=== PATIENT | male | born 1960 | race Two or more races ===

== ENCOUNTER 2024-10-05 11:49 | Emergency (ER) | payer MEDICAID, SELFPAY ==
[2024-10-05 11:51] VITALS: BMI 26.6
[2024-10-05 12:53] VITALS: BP 142/82; PULSE 88; RESP 18; TEMP 36.9; O2SAT 99
--- NOTE | 2024-10-05 14:38 | EDNOTE_ITS ---
ED Skin Abcess FB-RME/HPI General Chief complaint: Skin/Abscess/Foreign Body Stated complaint: POSS BUG BITE LEFT HAND YESTERDAY Time Seen by Provider: 10/05/24 12:59 Source: patient Arrival date/time: 10/05/24 11:49 Mode of arrival: ambulatory Limitations: no limitations RME / HPI RME / HPI narrative: Patient is a 63-year-old male with no significant past medical history to the emergency department with concerns for bilateral lower extremity pain after having been bit by a bug yesterday. Patient noticed a lesion on his left upper extremity as mild erythema in the middle, playing around and then a [place], since then has had pain in both of his legs, and weakness in his extremities. Patient has a history of arthritis. Patient does also have a history of chronic lower extremity edema, takes furosemide at home. Also has a history of hypertension, takes lisinopril. Denies fevers chills nausea vomiting chest pain abdominal pain dysuria hematuria melena bloody stool drugs alcohol smoking recent travel to contact. Related Data Home Medications ?Medication ?Instructions ?Recorded ?Confirmed gemfibrozil 600 mg tablet 600 mg PO HS ##30 09/19/14 Previous Rx's ?Medication ?Instructions ?Recorded doxycycline hyclate 100 mg capsule 100 mg PO BID #20 c aps 10/05/24 Allergies Allergy/AdvReac Type Severity Reaction Status Date / Time No Known Allergies Allergy Verified 10/05/24 11:56 ED Exam General Limitations: Present no limitations General appearance: Present alert Head Head exam: Present atraumatic Eye Eye exam: Present normal appearance ENT ENT exam: Present normal exam Neck Neck exam: Present normal inspection; Absent tenderness or meningismus Chest Chest inspection: Present normal inspection Respiratory Respiratory exam: Present normal lung sounds bilaterally; Absent respiratory distress Cardiovascular Cardiovascular exam: Present regular rate and normal rhythm Abdominal Exam Abdominal exam: Present soft; Absent distention or tenderness Extremities Exam Extremities exam: Present normal inspection, full ROM and normal capillary refill; Absent tenderness Neurological Exam Neurological exam: Present alert, oriented X3, CN II-XII intact and normal gait Psychiatric Psychiatric exam: Present normal affect Skin Skin exam: Present warm, dry and rash (Patient with 3 cm lesion to his left forearm, with punctate area of erythema, surrounded central clearing, then surrounding that a [place] of mild erythema, no fluctuance or crepitus,) Course Quality Measures none Orders Category Date Time Status Lyme Ab w Reflex IgG,IgM Blot* Stat Lab 10/05/24 Ordered Doxycycline [Vibramycin] Med 10/05/24 13:29 Discontinued 100 mg PO X1 ONE Ketorolac Inj [Toradol Inj] Med 10/05/24 14:38 Once 15 mg IM X1 ONE Vital Signs Vital signs: Vital Signs Temperature 98.5 F 10/05/24 12:53 Pulse Rate 88 10/05/24 12:53 Respiratory Rate 18 10/05/24 12:53 Blood Pressure 142/82 H 10/05/24 12:53 Pulse Oximetry (%) 99 10/05/24 12:53 Oxygen Delivery Method Room Air 10/05/24 12:53 Skin / Abscess / Foreign Body MDM Narrative MDM Narrative:: Patient is a 61-year-old male is in the emerged part with concerns for diffuse lower extremity pain, mild prostatic pain after having been bit by an insect yesterday. Vital signs and exam as above. Concern for Lyme disease, reactive arthritis. Patient nonseptic nontoxic-appearing, no fluctuance or crepitus appreciated on lesion on left upper extremity, lower extremities have chronic lower extremity edema however skin is intact, 2+ DP pulses, 2+ radial pulses bilateral symmetric intact all 4 extremities, no signs of cellulitis, or deep space infection. No signs of trauma. Will proceed with treatment for Lyme disease given the lesion characteristics She is appreciated on left upper extremity and arthralgias. Will provide pat ient with a course of antibiotics, discharged home with close return precautions and follow-up with his primary care doctor. Patient data External records reviewed:: None Clinical information provided by:: patient Social determinants that could affect healthcare access:: other (specify) Patient has the following chronic illnesses:: See MDM How is presenting disease/condition affected by chronic disease/condition?: exacerbated by Evaluation data The following diagnostics were reviewed and interpreted by me:: other (specify) Lab and/or radiology exams considered but not ordered:: None Interpretation Summary: None Medications / Prescriptions Medications or Prescriptions considered but not ordered:: None Medication administrations:: Medication Administration History Ketorolac Tromethamine (Ketorolac Inj 60 Mg/2 Ml Vial) 15 mg IM X1 ONE Stop: 10/05/24 14:39 Discontinued Medications Doxycycline Hyclate (Doxycycline 100 Mg Tablet) 100 mg PO X1 ONE Stop: 10/05/24 13:30 See above Consultations Consultation(s) initiated? (list below): No Diagnosis Skin/Abscess Differential Diagnosis: abscess of skin or subcutaneous tissue, viral exanthem, contact dermatitis and other Most likely diagnosis given after review of the tests above:: Lyme associated arthralgias Admission Indicated Admission indicated?: not indicated Admission Request Was there a request for admission?: No Disposition Plan Disposition Plan: Discharge Discharge Attestation Discharge Attestation: The patient and all family members were given an opportunity to ask questions and understood the discharge instructions. Discharge instructions specifically effects, indications for sooner follow up or return to the emergency department, and the expected course of current diagnosis. Patient condition: Stable Discharge Plan Plan Patient Disposition: HOME (Self Care) Prescriptions/Referrals Prescriptions/Med Rec: New doxycycline hyclate 100 mg capsule 100 mg PO BID Qty: 20 0RF No Action gemfibrozil 600 MG tablet 600 mg PO HS Qty: 30 Problem List Clinical Impression: Cellulitis Patient/Caregiver Discharge Instructions Education Materials: ED Cellulitis Additional Instructions: Por favor hacer samira con [facility] dentro de 1-2 batista. Celia sintomas y lesion en [place] b[place] son consistentes con la enfermedad Lyme disease. Por favor completar antibioticos. regresar inmediatamente si tiene empeoramiento de sintomas o sintomas de preocupacion. Print Language: Albanian Stand Alone Forms: [facility] Award Info., Patient Portal Info Letter
[2024-10-05] MEDS: DOXYCYCLINE 100 MG TABLET PO (14:48)
[2024-10-05] MEDS: KETOROLAC INJ 60 MG/2 ML VIAL 15 MG IM (14:49)
== END 2024-10-05 15:40 | disposition home or self-care (01) ==
PROVIDERS: Emergency Provider Emergency Medicine; PCP Nurse Practitioner Family
DX: L03.116 Cellulitis of left lower limb (principal); M19.90 Unspecified osteoarthritis, unspecified site; I10 Essential (primary) hypertension
CPT/HCPCS: 86618; 96372; 99282; J1885; A9270